=== PATIENT | male | born 1995 | race Caucasian/White ===

== ENCOUNTER 2017-07-19 10:30 | Emergency (ER) | payer BC, MEDICAID ==
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
[2017-07-19 12:34] VITALS: BP 113/56
== END 2017-07-19 12:21 | disposition home or self-care (01) ==
LOC: ER 10:30
DX: S62.342A Nondisplaced fracture of base of third metacarpal bone, right hand, initial encounter for closed fracture (principal); W22.8XXA Striking against or struck by other objects, initial encounter
CPT/HCPCS: 99283; 73110; L3908